=== PATIENT | female | born 1965 | race African-American/Black ===

== ENCOUNTER 2024-03-26 17:02 | Inpatient (IN) | payer OTHER ==
[~2024-03-26] VITALS: Ht 167.6 cm; Wt 92.1 kg
[2024-03-26 19:45] LABS: BASOPHILS % 0.9 % (0.0-2.0); EOSINOPHILS % 11.1 % (0.0-5.0); HEMATOCRIT. 36.8 % (36.0-48.0); HEMOGLOBIN. 12.1 g/dL (12.0-16.0); LYMPHOCYTES % 23.5 % (20.0-50.0); MEAN CORPUSCULAR HEMOGLOBIN 29.3 pg (28.0-32.0); MEAN CORPUSCULAR HGB CONC 32.8 g/dL (31.0-37.0); MEAN CORPUSCULAR VOLUME 89.4 fL (81.0-99.0); MEAN PLATELET VOLUME 8.6 fl (7.4-10.4); NEUTROPHILS % 61.5 % (40.0-76.0); PLATELET 288 x1000/uL (130-400); RED BLOOD CELL COUNT 4.11 mill/uL (4.2-5.4); RED CELL DISTRIBUTION WIDTH 13.4 % (11.6-14.6); WHITE BLOOD COUNT 9.1 x1000/uL (4.5-11.0)
[2024-03-26] MEDS ORDERED: ASPIRIN 325MG EC TABLET PO ONE (19:45)
[2024-03-26 19:50] LABS: CHLORIDE 105 mEq/L (98-107); POTASSIUM 4.2 mEq/L (3.5-5.1); SODIUM 139 mEq/L (136-145)
[2024-03-26 19:51] LABS: CALCIUM 9.3 mg/dL (8.7-10.4); CARBON DIOXIDE 29 mEq/L (21-32)
[2024-03-26 19:55] LABS: PROTHROMBIN TIME 10.9 sec (9.6-11.0)
[2024-03-26 19:56] LABS: CREATININE 0.8 mg/dL (0.6-1.0); GLUCOSE 234 mg/dL (70-105); UREA NITROGEN BLOOD 15 mg/dL (9-23)
[2024-03-26 20:29] LABS: ETHANOL BLOOD < 10 mg/dL (<10); TROPONIN I HIGH SENSITIVITY < 4 ng/L (3.0-34)
[2024-03-27] VITALS: BP 155/73; PULSE 67; RESP 20; TEMP 96.4
[2024-03-27] MEDS: ASPIRIN 325MG EC TABLET PO NR (00:22)
[2024-03-27] MEDS: IOHEXOL-350 100 ML BOTTLE ONE (00:35)
[2024-03-27] MEDS ORDERED: HYDRALAZINE HCL 25MG TABLET PO PRN (09:00)
[2024-03-27] MEDS: CLOPIDOGREL 75MG TABLET PO SCH (10:32)
[2024-03-27] MEDS: ASPIRIN 81MG EC TABLET PO SCH (10:33)
[2024-03-27] MEDS ORDERED: DEXTROSE 50% WATER 50ML SYRINGE IV PRN (11:45)
[2024-03-27] MEDS: BLOOD SUGAR DIAGNOSTIC STRIP TEST SCH (13:00)
[2024-03-27] MEDS: INSULIN LISPRO 100 UNITS/ML SUBCUT SCH (13:10)
[2024-03-27] MEDS ORDERED: METF-874 PO (14:15)
[2024-03-27] MEDS ORDERED: INSU100I28 SQ (14:15)
[2024-03-27 14:32] VITALS: BP 124/64; PULSE 74; RESP 18; TEMP 98
[2024-03-27] MEDS: ENOXAPARIN 40MG/0.4ML SYR SUBCUT SCH (17:26)
[2024-03-27 20:00] VITALS: BP 154/73; PULSE 64; RESP 18; TEMP 98.1
[2024-03-27] MEDS: ATORVASTATIN CALCIUM 40MG TABLET PO SCH (21:34)
[2024-03-27] MEDS ORDERED: MECLIZINE 25MG TABLET PO PRN (22:15)
[2024-03-28] VITALS: BP 117/66; PULSE 68; RESP 18; TEMP 98.8
[2024-03-28 04:00] VITALS: BP_SYST 116; BP_SYST 143; BP_SYST 146; BP_DIAS 76; BP_DIAS 83; PULSE 67; RESP 18; TEMP 97.7
[2024-03-28 07:43] LABS: CLARITY URINE CLOUDY (CLEAR); COLOR URINE YELLOW (YELLOW); GLUCOSE URINE NEGATIVE (NEGATIVE); KETONES URINE NEGATIVE (NEGATIVE); LEUKOCYTE ESTERASE URINE 1+ (NEGATIVE); NITRITE URINE POSITIVE (NEGATIVE); OCCULT BLOOD URINE NEGATIVE (NEGATIVE); PH URINE 5.5 (4.5-8.0); PROTEIN URINE NEGATIVE (NEGATIVE); SPECIFIC GRAVITY URINE 1.016 (1.005-1.030); UROBILINOGEN URINE 0.2 E.U./dL (0.2-1.0)
[2024-03-28 07:58] LABS: *AMPHETAMINES SCREEN URINE NEGATIVE (NEGATIVE); *BARBITURATES SCREEN URINE NEGATIVE (NEGATIVE); *BENZODIAZEPINES SCREEN URINE NEGATIVE (NEGATIVE); *COCAINE SCREEN URINE NEGATIVE (NEGATIVE); METHADONE URINE SCREEN NEGATIVE (NEGATIVE); OPIATES URINE SCREEN NEGATIVE (NEGATIVE); PHENCYCLIDINE URINE SCREEN NEGATIVE (NEGATIVE)
[2024-03-28 07:59] LABS: CANNABINOID URINE SCREEN NEGATIVE (NEGATIVE); ECSTASY MDMA SCREEN URINE NEGATIVE (NEGATIVE)
[2024-03-28 08:00] VITALS: BP 147/82; PULSE 66; RESP 18; TEMP 97.3
[2024-03-28 08:09] LABS: BACTERIA URINE 3+; RBC URINE 0-2 /hpf (0-2); SQUAMOUS EPITHELIAL CELL URINE 2+ /lpf (RARE/1+); WBC URINE 15-25 /hpf (0-2); YEAST URINE NONE SEEN
[2024-03-28 12:00] VITALS: BP 137/73; PULSE 68; RESP 18; TEMP 98.3
[2024-03-28] MEDS: SODIUM CHLORIDE 0.45% 1,000 ML IV SCH (14:17)
[2024-03-28] MEDS: CEFTRIAXONE 1GM/50ML 50 ML IV SCH (14:25)
[2024-03-28] MEDS ORDERED: NITR-87 MT (15:35)
[2024-03-28 16:00] VITALS: BP 142/76; PULSE 70; RESP 19; TEMP 98.3
[2024-03-28 16:51] VITALS: BP 142/76; PULSE 19; TEMP 98.3; O2SAT 98
== END 2024-03-28 17:40 | disposition home or self-care (01) | DRG 74 ==
LOC: ER 17:02 → 5WST 20:55 → EDBEDREQTM 21:14 → EDBEDREQ 21:14 → 7EST 03-27 13:45
PROVIDERS: ADMIT Internal Medicine; ATTEND Internal Medicine
DX: G90.8 Other disorders of autonomic nervous system (principal); N39.0 Urinary tract infection, site not specified; R27.8 Other lack of coordination; E11.65 Type 2 diabetes mellitus with hyperglycemia; E66.9 Obesity, unspecified; F17.200 Nicotine dependence, unspecified, uncomplicated; Z68.32 Body mass index [BMI] 32.0-32.9, adult
CPT/HCPCS: 36415; 70496; 70498; 70551; 71045; 80048; 80061; 80305; 80320; 81003; 82962; 83036; 84484; 85025; 93005; 93306; 97162; 97165; 99285; J0696; J1650; J1815; Q9967; G0480